=== PATIENT | male | born 1970 | race Caucasian/White ===

== ENCOUNTER 2017-03-12 03:59 | Emergency (ER) | payer SELFPAY ==
[~2017-03-12] VITALS: Ht 172.7 cm; Wt 117.9 kg
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
[2017-03-12 04:04] VITALS: BP 144/91
[2017-03-12] MEDS ORDERED: INSULIN HUMAN REGULAR 100 UNITS/ML 10 ML VIAL SUBQ ONE (04:40)
--- NOTE | 2017-03-12 04:41 | NUR ---
Dr. Rowland evaluating patient.
--- NOTE | 2017-03-12 04:53 | NUR ---
SQ MEDS GIVEN-NADR AT THIS TIME.
--- NOTE | 2017-03-12 05:24 | NUR ---
2ND ACCU 283. ER MD NOTIFTED. Pupils equal and reactive to light bilaterally. No facial droop noted. No smile deficit noted. Speech normal for patient. Patient is alert and oriented to person, place, time and event. 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 Bilateral foot push equal.
[2017-03-12 05:30] VITALS: BP 132/88
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
== END 2017-03-12 05:42 ==
LOC: MED 03:59
DX: E11.65 Type 2 diabetes mellitus with hyperglycemia (principal); I10 Essential (primary) hypertension; F17.200 Nicotine dependence, unspecified, uncomplicated; F14.90 Cocaine use, unspecified, uncomplicated; F12.90 Cannabis use, unspecified, uncomplicated; F19.90 Other psychoactive substance use, unspecified, uncomplicated
CPT/HCPCS: 82948; 96372; 99283; J1815

== ENCOUNTER 2017-03-12 23:35 | Emergency (ER) | payer SELFPAY ==
[~2017-03-12] VITALS: Ht 172.7 cm; Wt 113.4 kg
[2017-03-12 23:36] VITALS: BP 134/81
--- NOTE | 2017-03-12 23:54 | NUR ---
PT TAKEN TO BED 5
--- NOTE | 2017-03-13 00:05 | NUR ---
PT TAKEN TO CT
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
--- NOTE | 2017-03-13 00:18 | NUR ---
PT RETURN FROM CT
--- NOTE | 2017-03-13 00:58 | NUR ---
Dr. Haji evaluating patient at bedside.
[2017-03-13] MEDS ORDERED: LIDOCAINE/EPI 1% 1:100000 20 ML VIAL INJ ONE (01:07)
[2017-03-13] MEDS ORDERED: NEOMYCIN/POLYMYXIN/BACITRACIN 0.9 GM/1 PKT TP ONE (01:10)
--- NOTE | 2017-03-13 01:10 | NUR ---
DR. SMITH SUTURE PT. AT BEDSIDE. Addendum: 03/13/17 at 0242 by MEDSP 1%XYLOCAINE WITH EPI SUBQ [address] SMITH, [facility]. NEOSPONRIN OINTMENT APPLIED TO CHIN, COVER BY DRY DRESSING.
[2017-03-13] MEDS ORDERED: MORPHINE SULFATE 4 MG/ML SYR IVP ONE ×2 (01:50→03:20)
[2017-03-13] MEDS ORDERED: ceFAZolin 1,000 MG VIAL ONE (01:58)
[2017-03-13 02:04] LABS: HEMATOCRIT 47.7 % (36-52); HEMOGLOBIN 16.1 g/dL (12.0-18.0); MEAN CORPUSCULAR HEMOGLOBIN 31 pg (27-31); MEAN CORPUSCULAR HGB CONC 34 g/dL (33-37); MEAN CORPUSCULAR VOLUME 91 fL (80-94); PLATELET COUNT (AUTO) 277 K/uL (140-450); RED BLOOD CELL COUNT(AUTO) 5.24 MIL/uL (4.20-6.10); RED CELL DISTRIBUTION WIDTH 12.7 % (11.6-13.7)
[2017-03-13] MEDS ORDERED: NACL 0.9% 1,000 ML IV ONE (02:05)
[2017-03-13 02:18] LABS: BAND % (MANUAL) 14 % (0-8); LYMPHOCYTES % (MANUAL) 9 % (20-46); MONOCYTES % (MANUAL) 5 % (5-12); NEUTROPHILS % (MANUAL) 72 (43-65)
[2017-03-13 02:19] LABS: ALBUMIN 4.4 g/dL (3.4-5.0); CALCIUM 9.2 mg/dL (8.5-10.1); CARBON DIOXIDE 24.2 mmol/L (21-32); CREATININE 1.2 mg/dL (0.6-1.3); POTASSIUM 4.2 mmol/L (3.5-5.1); TOTAL BILIRUBIN 1.3 mg/dL (0.0-1.0); TOTAL PROTEIN, SERUM 8.3 g/dL (6.4-8.2)
--- NOTE | 2017-03-13 02:19 | NUR ---
PT TAKEN TO CT
[2017-03-13 02:23] LABS: INR 1.1 (0.8-1.2); PROTHROMBIN TIME 10.9 secs (10.8-13.4)
[2017-03-13 02:24] LABS: PARTIAL THROMBOPLASTIN TIME 30.2 secs (22-35.6)
--- NOTE | 2017-03-13 02:27 | NUR ---
PT. RESTINFN IN BED, AAO X4. NO S/SX OF DISTRESS AT THIS TIME.
--- NOTE | 2017-03-13 02:27 | NUR ---
PT RETURN FROM CT
--- NOTE | 2017-03-13 03:23 | NUR ---
Patient discharged with v/s stable. Written and verbal after care instructions given and explained. Patient alert, oriented and verbalized understanding of instructions. Wheel Chair Assisted with to car. All questions addressed prior to discharge. ID band removed. Patient advised to follow up with PMD. Rx of NAPROSYN 500 MG, KEFLEX 500 MG given. Patient educated on indication of medication including possible reaction and side effects. Opportunity to ask questions provided and answered.
[2017-03-13 03:46] VITALS: BP 130/82
== END 2017-03-13 03:23 | disposition home or self-care (01) ==
LOC: MED 23:35
DX: S02.652A Fracture of angle of left mandible, initial encounter for closed fracture (principal); S02.612A Fracture of condylar process of left mandible, initial encounter for closed fracture; S02.40DA Maxillary fracture, left side, initial encounter for closed fracture; E11.9 Type 2 diabetes mellitus without complications; I10 Essential (primary) hypertension; Y08.89XA Assault by other specified means, initial encounter
CPT/HCPCS: 12011; 36415; 70450; 70486; 80053; 82948; 85025; 85610; 85730; 96365; 96375; 99291; 99292; J0690; J2001; J2270; J7030; J7060

== ENCOUNTER 2019-01-18 18:18 | Emergency (ER) | payer MEDICAID ==
[~2019-01-18] VITALS: Ht 172.7 cm; Wt 110.2 kg
[2019-01-18 18:24] VITALS: BP 143/86
[2019-01-18] MEDS ORDERED: HYDROcodone/APAP 7.5/325 MG 1 TAB PO ONE (19:00)
[2019-01-18] MEDS ORDERED: ONDANSETRON 4 MG ODT PO ONE (19:00)
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
--- NOTE | 2019-01-18 19:25 | NUR ---
CAMILLA BENÍTEZ PERFORMING US AT BEDSIDE.
--- NOTE | 2019-01-18 19:30 | NUR ---
DR. WHITTEN EVALUATING PT AT BEDSIDE.
[2019-01-18] MEDS ORDERED: LIDOCAINE 1% 500 MG/50 ML VIAL INJ SCH (19:45)
--- NOTE | 2019-01-18 19:49 | NUR ---
CAMILLA BENÍTEZ PERFORMING LIDOCAINE INJECTION, INCISION AND DRAINAGE AT BEDSIDE.
[2019-01-18] MEDS ORDERED: LIDOCAINE MPF 1% 5mL VIAL ONE ×2 (19:58→20:07)
[2019-01-18 20:22] LABS: BASOPHILS # (AUTO) 0.1 K/uL (0.00-0.22); BASOPHILS % (AUTO) 1.2 % (0.0-2.0); EOSINOPHILS # (AUTO) 0.3 K/uL (0-0.4); EOSINOPHILS % (AUTO) 2.5 % (0.0-4.0); HEMATOCRIT 45.9 % (36-52); HEMOGLOBIN 15.9 g/dL (12.0-18.0); LYMPHOCYTES # (AUTO) 2.1 K/uL (2.0-11.5); LYMPHOCYTES % (AUTO) 19.3 % (20.5-51.1); MEAN CORPUSCULAR HEMOGLOBIN 32 pg (27-31); MEAN CORPUSCULAR HGB CONC 35 g/dL (33-37); MEAN CORPUSCULAR VOLUME 91.7 fL (80-94); MONOCYTES # (AUTO) 0.6 K/uL (0.8-1.0); MONOCYTES % (AUTO) 5.5 % (1.7-9.3); NEUTROPHILS # (AUTO) 7.6 K/uL (1.8-7.7); NEUTROPHILS % (AUTO) 71.5 % (42.2-75.2); PLATELET COUNT (AUTO) 333 K/uL (140-450); RED BLOOD CELL COUNT(AUTO) 5.01 MIL/uL (4.20-6.10); WHITE BLOOD COUNT (AUTO) 10.6 K/uL (4.8-10.8)
[2019-01-18 20:25] LABS: ANION GAP 10.4 (8-16); CARBON DIOXIDE 27.8 mmol/L (21-32); POTASSIUM 3.2 mmol/L (3.5-5.1)
[2019-01-18 20:30] LABS: ALBUMIN 3.5 g/dL (3.4-5.0); TOTAL BILIRUBIN 0.3 mg/dL (0.0-1.0)
--- NOTE | 2019-01-18 20:32 | NUR ---
CLEANED 4TH RIGHT DIGIT WITH NS AND WRAPPED WITH GAUZE. PT TOLERATED WELL.
[2019-01-18] MEDS ORDERED: NACL 0.9% 1,000 ML IV ONE (20:50)
[2019-01-18] MEDS ORDERED: cefTRIAXone 1,000 MG VIAL ONE (21:00)
[2019-01-18 22:16] VITALS: BP 143/86
--- NOTE | 2019-01-18 22:16 | NUR ---
Patient discharged with v/s stable. Written and verbal after care instructions given and explained. Patient alert, oriented and verbalized understanding of instructions. Ambulatory with steady gait. All questions addressed prior to discharge. ID band removed. Patient advised to follow up with PMD. Rx of MWETFORMIN, BACTRIM, KEFLEX WAS given. Patient educated on indication of medication including possible reaction and side effects. Opportunity to ask questions provided and answered.
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
== END 2019-01-18 22:16 | disposition home or self-care (01) ==
LOC: MED 18:18
DX: L02.511 Cutaneous abscess of right hand (principal); L03.011 Cellulitis of right finger; E11.9 Type 2 diabetes mellitus without complications; I10 Essential (primary) hypertension
CPT/HCPCS: 10160; 36415; 73140; 80053; 83036; 85025; 87040; 87070; 87075; 87186; 87205; 96365; 99284; J0696; J2001; J7030; Q0092; Q0162

== ENCOUNTER 2021-09-11 17:03 | Emergency (ER) | payer SELFPAY ==
[~2021-09-11] VITALS: Ht 172.7 cm; Wt 98.5 kg
[2021-09-11 17:36] VITALS: BP 144/89
--- NOTE | 2021-09-11 18:28 | NUR ---
ATTEMPTED TO CALL PT BACK FOR XRAY, NO ANSWER
[2021-09-11] MEDS ORDERED: NAPR-54 PO (19:42)
== END 2021-09-11 20:00 | disposition home or self-care (01) ==
LOC: MED 17:03
DX: S83.91XA Sprain of unspecified site of right knee, initial encounter (principal); E11.9 Type 2 diabetes mellitus without complications; I10 Essential (primary) hypertension; F17.210 Nicotine dependence, cigarettes, uncomplicated; X50.0XXA Overexertion from strenuous movement or load, initial encounter; Y93.89 Activity, other specified; Y92.89 Other specified places as the place of occurrence of the external cause; Y99.8 Other external cause status
CPT/HCPCS: 29505; 73562; 99283